=== PATIENT | female | born 1945 | race Caucasian/White ===

== ENCOUNTER 2018-08-19 11:39 | Emergency (ER) | payer MEDICARE ==
[~2018-08-19] VITALS: Ht 160 cm; Wt 63.6 kg
[2018-08-19 11:44] VITALS: Ht 160 cm; Wt 63.6 kg
[2018-08-19] MEDS ORDERED: HCTZ25 MG PO (12:02)
[2018-08-19] MEDS ORDERED: NICORETTE2 MG PO (12:02)
[2018-08-19] MEDS ORDERED: COZAAR50 MG (12:02)
[2018-08-19] MEDS ORDERED: BUSPAR5 MG PO (12:09)
[2018-08-19] MEDS ORDERED: ZYBAN150 MG PO (12:11)
[2018-08-19] MEDS ORDERED: CO Q-10200 MG (12:12)
[2018-08-19] MEDS ORDERED: FLORAJEN3 CAPS460 MG PO (12:12)
[2018-08-19] MEDS ORDERED: SUPER B COMPLE150 MG PO (12:12)
[2018-08-19] MEDS ORDERED: TOZAL SOFTGEL1 EACH PO (12:13)
[2018-08-19] MEDS ORDERED: VITAMIN D31000 UNIT PO (12:13)
[2018-08-19] MEDS ORDERED: OMEGA-3100 MG PO (12:13)
[2018-08-19] MEDS ORDERED: CALCIUM 600 +1 EAC3 PO (12:13)
[2018-08-19 13:43] LABS: BASOPHILS 0.4 % (0-2); EOSINOPHILS 0.6 % (0-7); HEMATOCRIT 35.2 % (36.0-48.0); HEMOGLOBIN 12.4 g/dL (12-16); IMMATURE GRANULOCYTES 0.3 % (0-5); LYMPHOCYTES 13.4 % (15-50); MCHC 35.2 g/dL (31.0-37.0); MEAN PLATELET VOLUME 9.6 fL (7.4-10.4); MONOCYTES 6.8 % (2-11); NEUTROPHILS 78.5 % (40-80); PLATELET COUNT 239 10x3/uL (130-400); RBC 3.87 10x6/uL (4.00-5.40); RDW 12.8 % (11.5-14.5); WBC 12.7 10x3/uL (4.8-10.8)
[2018-08-19 14:05] LABS: ALBUMIN 3.7 g/dL (3.4-5.0); ALKALINE PHOSPHATASE 79 U/L (46-116); ALT (SGPT) 41 U/L (10-68); BILIRUBIN - TOTAL 0.26 mg/dL (0.2-1.3); CALC OSMOLALITY 276 mosm/kg (275-300); CALCIUM 9.5 mg/dL (8.5-10.1); CARBON DIOXIDE 29.9 mmol/L (21.0-32.0); CHLORIDE - SERUM 98 mmol/L (98-107); CREATININE - SERUM 0.8 mg/dL (0.6-1.3); GLUCOSE 120 mg/dL (74-106); POTASSIUM - SERUM 3.6 mmol/L (3.5-5.1); PROTEIN - SERUM 7.3 g/dL (6.4-8.2); SODIUM 138 mmol/L (136-145); UREA NITROGEN 12 mg/dL (7-18); eGFR NON AFRICAN AMERICAN 75 mL/min (90-120)
[2018-08-19 14:14] VITALS: BP 175/75
== END 2018-08-19 15:48 | disposition other institution (70) ==
LOC: D.ER 11:39
PROVIDERS: Family Medicine
DX: S92.002A Unspecified fracture of left calcaneus, initial encounter for closed fracture (principal); S92.001A Unspecified fracture of right calcaneus, initial encounter for closed fracture; W11.XXXA Fall on and from ladder, initial encounter; Y93.89 Activity, other specified; Y92.019 Unspecified place in single-family (private) house as the place of occurrence of the external cause; M79.672 Pain in left foot; M79.671 Pain in right foot